=== PATIENT | female | born 1960 | race Caucasian/White ===

== ENCOUNTER → 2016-09-15 | Outpatient (CLI) | payer OTHER | LOC: BHSO 13:20 | DX: F33.1 Major depressive disorder, recurrent, moderate (principal) ==

== ENCOUNTER → 2016-10-16 | Outpatient (CLI) | payer OTHER | LOC: BHSO 13:27 | DX: F33.41 Major depressive disorder, recurrent, in partial remission (principal) ==

== ENCOUNTER → 2016-12-11 | Outpatient (CLI) | payer OTHER | LOC: BHSO 13:12 | DX: F33.41 Major depressive disorder, recurrent, in partial remission (principal) ==

== ENCOUNTER → 2017-01-24 | Outpatient (CLI) | payer OTHER | LOC: BHSO 14:24 | DX: F06.32 Mood disorder due to known physiological condition with major depressive-like episode (principal) ==

== ENCOUNTER → 2017-08-03 | Outpatient (CLI) | payer OTHER | LOC: BHSO 10:34 | DX: F06.32 Mood disorder due to known physiological condition with major depressive-like episode (principal) ==

== ENCOUNTER → 2017-11-02 | Outpatient (CLI) | payer BC | LOC: BHSO 11:00 | DX: F06.32 Mood disorder due to known physiological condition with major depressive-like episode (principal) | CPT/HCPCS: G0463 ==

== ENCOUNTER → 2018-01-31 | Outpatient (CLI) | payer BC | LOC: BHSO 15:52 | DX: F33.2 Major depressive disorder, recurrent severe without psychotic features (principal) | CPT/HCPCS: G0463 ==

== ENCOUNTER → 2018-03-15 | Outpatient (CLI) | payer BC | LOC: BHSO 13:40 | DX: F06.32 Mood disorder due to known physiological condition with major depressive-like episode (principal) | CPT/HCPCS: G0463 ==

== ENCOUNTER → 2018-06-28 | Outpatient (CLI) | payer BC | LOC: BHSO 08:24 | DX: F06.32 Mood disorder due to known physiological condition with major depressive-like episode (principal) | CPT/HCPCS: G0463 ==

== ENCOUNTER → 2018-07-02 | Outpatient (CLI) | payer BC | LOC: COL.RAD 10:54 | DX: R25.1 Tremor, unspecified (principal); Z87.820 Personal history of traumatic brain injury ==

== ENCOUNTER 2018-09-26 16:15 | Outpatient (RCR) | payer BC | END 2018-10-01 | disposition home or self-care (01) | LOC: WSPT | DX: S06.9X0S Unspecified intracranial injury without loss of consciousness, sequela (principal); R25.1 Tremor, unspecified; Z83.3 Family history of diabetes mellitus; Z82.49 Family history of ischemic heart disease and other diseases of the circulatory system; Z79.899 Other long term (current) drug therapy; Z91.81 History of falling ==

== ENCOUNTER → 2018-12-05 | Outpatient (CLI) | payer BC | LOC: BHSO 08:38 | DX: F06.32 Mood disorder due to known physiological condition with major depressive-like episode (principal) | CPT/HCPCS: G0463 ==

== ENCOUNTER 2019-03-12 10:00 | Outpatient (RCR) | payer BC | END 2019-03-25 15:17 | disposition home or self-care (01) | LOC: WSOT 10:00 | DX: Z47.89 Encounter for other orthopedic aftercare (principal); Z98.890 Other specified postprocedural states ==

== ENCOUNTER → 2019-03-14 | Outpatient (CLI) | payer BC | LOC: BHSO 10:35 | DX: F33.42 Major depressive disorder, recurrent, in full remission (principal) | CPT/HCPCS: G0463 ==

== ENCOUNTER → 2019-09-29 | Outpatient (CLI) | payer BC | LOC: BHSO 15:39 | DX: F06.32 Mood disorder due to known physiological condition with major depressive-like episode (principal) | CPT/HCPCS: G0463 ==

== ENCOUNTER 2019-11-18 10:00 | Outpatient (RCR) | payer BC | END 2020-02-01 | disposition still patient (30) | LOC: WSPT | DX: R26.89 Other abnormalities of gait and mobility (principal); R29.6 Repeated falls ==

== ENCOUNTER 2020-06-23 13:30 | Outpatient (RCR) | payer MEDICARE | END 2020-09-01 | disposition home or self-care (01) | LOC: WSPT | DX: M54.41 Lumbago with sciatica, right side (principal); R26.89 Other abnormalities of gait and mobility; G89.29 Other chronic pain; R29.6 Repeated falls ==

== ENCOUNTER 2021-01-13 08:17 | Outpatient (RCR) | payer MEDICARE | END 2021-01-14 09:48 | disposition home or self-care (01) | LOC: WSPT 08:17 | DX: R26.89 Other abnormalities of gait and mobility (principal); M54.5 Low back pain; G89.29 Other chronic pain; R29.6 Repeated falls ==

== ENCOUNTER → 2021-02-25 | Outpatient (CLI) | payer MEDICARE | LOC: MC.RAD 10:55 | DX: N64.89 Other specified disorders of breast (principal) ==

== ENCOUNTER 2022-12-01 19:13 | Emergency (ER) | payer MEDICARE ==
[~2022-12-01] VITALS: Ht 157.5 cm; Wt 60.5 kg
[2022-12-01 19:14] VITALS: TEMP 98.3
[2022-12-01 21:57] VITALS: BP 127/89; PULSE 80
== END 2022-12-01 21:55 | disposition home or self-care (01) ==
LOC: COL.ER 19:13
DX: S09.90XA Unspecified injury of head, initial encounter (principal); S01.01XA Laceration without foreign body of scalp, initial encounter; W18.30XA Fall on same level, unspecified, initial encounter; W22.09XA Striking against other stationary object, initial encounter; Y93.01 Activity, walking, marching and hiking; Y92.520 Airport as the place of occurrence of the external cause